=== PATIENT | female | born 1950 | race Caucasian/White ===

== ENCOUNTER 2016-06-27 14:57 | Emergency (ER) | payer OTHER ==
[2016-06-27 15:04] VITALS: O2SAT 95
--- NOTE | 2016-06-27 16:33 | EDPHY ---
H & P Time Seen by Provider: 06/27/16 16:29 HPI/ROS: CHIEF COMPLAINT: Panic attacks. HISTORY OF PRESENT ILLNESS: This is a 66-year-old female who presents with severe anxiety. She was placed on Xanax one month ago for new-onset anxiety. She reports that the Xanax caused her to start having more frequent panic attacks. She is having difficulty sleeping and says she is "spiraling out of control." She says her panic attacks manifest as chest pain, shortness of breath , and shaking. She believes all of this was caused by the fact that her new house has tinted windows. She also reports being placed on Celexa a week ago and took a few doses before stopping it due to "burning" in the back of her head. She does state she has been thinking more often about suicide. She denies HI, hallucinations, or other complaints at this time. She has not seen a psychiatrist. Her states that her anxiety is out of control, and she is unable to function because of severe anxiety. REVIEW OF SYSTEMS: A complete 10-point review of systems was performed and is negative except for those items mentioned in the HPI. Past Medical/Surgical History: Hypothyroidism, anxiety, depression. Social History: Here with . Smoking Status: Never smoked Physical Exam: General Appearance: very anxious Eyes: Pupils equal and round, no conjunctival pallor or injection ENT, Mouth: Mucous membranes moist Neck: Normal inspection Respiratory: Lungs are clear to auscultation Cardiovascular: Regular rate and rhythm Gastrointestinal: Abdomen is soft and non-tender Neurological: A&O, nonfocal, normal gait Skin: Warm and dry, no rash Extremities: normal inspection Psychiatric: anxious Constitutional: Initial Vital Signs Temperature (C) 36.2 C 06/27/16 15:00 Heart Rate 82 06/27/16 15:00 Respiratory Rate 20 06/27/16 15:00 Blood Pressure 138/100 H 06/27/16 15:00 O2 Sat (%) 95 06/27/16 15:00 O2 Delivery Mode Room Air Allergies/Adverse Reactions: acetaminophen [From Tylenol] Allergy (Verified 06/27/16 15:04) aspirin Allergy (Verified 06/27/16 15:04) Home Medications: Medication Instructions Recorded LORazepam [Ativan (RX)] 1 mg PO Q12 PRN #10 tab 06/27/16 Medical Decision Making ED Course/Re-evaluation: I offered Ativan to the patient but she initally declined. Mental health evaluators have been notified and will evaluate her when available. 2043: Con from [facility] has consulted with the patient. [place] appropriate for outpt treatment of anxiety and depression. She has an appointment scheduled for Tuesday with her regular doctor and will seek out a psychiatrist. 2121: Reassessed patient. She received 1mg PO Ativan which helped her anxiety greatly. She was feeling better and ready to go home. I answered all of her questions. She understands to follow up with her primary care provider on Tuesday. She is comfortable with the plan. - Data Points Laboratory Results: Laboratory Results 06/27/16 17:35 06/27/16 17:35 Medications Given: Discontinued Medications Lorazepam (Ativan) 1 mg PO EDNOW ONE Stop: 06/27/16 17:07 Last Admin: 06/27/16 17:21 Dose: 1 mg Lorazepam (Ativan 1 Mg Prepack#4) 1 btl TAKEHOME EDNOW ONE Stop: 06/27/16 20:50 Last Admin: 06/27/16 21:43 Dose: 1 btl Departure - Departure Disposition: Home, Routine, Self-Care Clinical Impression: Anxiety Condition: Good Instructions: Anxiety (ED), Lorazepam (By mouth) Additional Instructions: Follow up with your doctor on Tuesday as scheduled and discussed. Take 1 tablet Ativan every 12 hours as needed for anxiety. Return to the emergency department for thoughts of suicide, thoughts of harming yourself or others, or other worsening of condition. Referrals: Danisha Escobar MD [Primary Care Provider] - As per Instructions Prescriptions: LORazepam [Ativan (RX)] 1 mg PO Q12 PRN #10 tab PRN Reason: Anxiety Report Scribed for: Ania Valentine Report Scribed by: Regis Rodrigues Date of Report: 06/27/16 Time of Report: 16:30 Physician Review and Approval Statement: 06/27/16 16:30 Portions of this note were transcribed by a medical delivery driver. I personally performed a history, physical exam, medical decision making, and confirmed accuracy of information the transcribed note.
[2016-06-27] MEDS ORDERED: LORazepam 1 MG TAB PO ONE (17:06)
[2016-06-27 17:42] LABS: % IMMATURE GRANULYOCYTES 0.1 % (0.0-1.1); ABSOLUTE IMMATURE GRANULOCYTES 0.01 10^3/uL (0.00-0.10); ADD DIFF? NO; ADD MORPH? NO; ADD SCAN? NO; ATYPICAL LYMPHOCYTE FLAG 0 (0-99); FRAGMENT RBC FLAG 0 (0-99); HEMOGLOBIN 14.8 g/dL (12.6-16.3); LEFT SHIFT FLG 0 (0-99); LIPEMIA HEMOLYSIS FLAG 80 (0-99); MEAN CELL HEMOGLOBIN 28.8 pg (27.9-34.1); MEAN CELL HEMOGLOBIN CONCENTR. 33.6 g/dL (32.4-36.7); MEAN CELL VOLUME 85.6 fL (81.5-99.8); MEAN PLATELET VOLUME 9.9 fL (8.7-11.7); PLATELET CLUMPS FLAG 10 (0-99); PLATELET COUNT 356 10^3/uL (150-400); RED BLOOD CELL COUNT 5.14 10^6/uL (4.18-5.33); RED CELL DISTRIBUTION WIDTH 13.4 % (11.5-15.2)
[2016-06-27 17:58] LABS: ANION GAP 12 mEq/L (8-16); CALCIUM 9.2 mg/dL (8.5-10.4); CARBON DIOXIDE 22 mEq/l (22-31); CHLORIDE 105 mEq/L (97-110); CREATININE 0.9 mg/dL (0.6-1.0); ETHANOL SERUM < 10 mg/dL (0-10); GLOMERULAR FILTRATION RATE > 60; GLUCOSE 89 mg/dL (70-100); POTASSIUM 4.1 mEq/L (3.5-5.2); SODIUM 139 mEq/L (134-144)
[2016-06-27] MEDS ORDERED: LORAZEPAM 1 MG PREPACK#4 BTL TAKEHOME ONE (20:49)
[2016-06-27 21:45] VITALS: BP 133/77; PULSE 79; RESP 18; TEMP 97.5
== END 2016-06-27 21:45 | disposition home or self-care (01) ==
DX: F41.9 Anxiety disorder, unspecified (principal)
CPT/HCPCS: 80305; G0480

== ENCOUNTER → 2018-03-16 | Outpatient (CLI) | payer OTHER | LOC: BMCIMAGING 09:35 | PROVIDERS: ATTEND Orthopaedic Surgery | DX: M17.0 Bilateral primary osteoarthritis of knee (principal); M21.061 Valgus deformity, not elsewhere classified, right knee ==

== ENCOUNTER → 2018-03-24 | Outpatient (CLI) | payer OTHER | LOC: FIMAGING 13:23 | PROVIDERS: ATTEND Orthopaedic Surgery | DX: Z01.818 Encounter for other preprocedural examination (principal); M17.0 Bilateral primary osteoarthritis of knee ==

== ENCOUNTER 2018-04-17 08:43 | Inpatient (IN) | payer OTHER ==
--- NOTE | 2018-04-17 06:44 | PDIAF ---
- Diagnosis Diagnosis: right knee djd Code Status: Full Code - Medication Management Discharge Medications: electronically signed and located in the Home Medication List. - Orders Services needed: Home Care, Physical Therapy Home Care Face to Face: I certify that this patient was under my care and that I had the required qgsz-tc-[id number] encounter meeting the encounter requirements on the discharge day. My findings support the fact that the patient is homebound as defined in Home Care Face to Face Continued: CMS Chapter 7 Medicare Benefits Manual 30.1.1 , The condition of the patient is such that there exists a normal inability to leave home and consequently, leaving home would require a considerable and taxing effort. Diet Recommendation: no restrictions on diet Diet Texture: Regular Texture Diet Additional Instructions: TOTAL JOINT ARTHROPLASTY DISCHARGE INSTRUCTIONS 1. Your surgeon follows the [facility] protocol for reducing your risk of DVT (blood clots) following surgery. Medication will be ordered to prevent blood clots. A sudden increase in calf pain and/or swelling could indicate a blood clot in your leg. If this occurs, please call your surgeon or his/her law office assistant. An ultrasound of the leg may be necessary to diagnose a blood clot. If you have conditions that make you a higher risk for blood clots, your surgeon may use more aggressive ways to prevent them. Notify your surgeon if you think you are a high risk for blood clots. 2. Wear your white surgical stockings (MT hose) for 2 weeks. This decreases your swelling and may help prevent blood clots. It is ok to remove MT hose at night time to give your legs a break. 3. Swelling and bruising in the surgical leg is common. If you feel that it is excessive, please notify your surgeon. 4. Elevate your surgical leg with the ankle above the hip several times every day. Please keep the leg straight when you elevate by putting pillows under your foot. Do not put pillows under your knee. This will make being able to fully straighten more difficult. This is uncomfortable, but try to do it as much as possible. 5. For total knee replacements use compressive wrap on your knee for 3-5 days after surgery, then you can discontinue it. 6. Use a walker or crutches for 1-2 weeks. Progress your weight-bearing as tolerated. You may start to use a cane when you feel stable and safe. 7. You will receive physical therapy instructions in the hospital. Continue those exercises at home. There are additional exercises in the total joint booklet you were given before surgery. Outpatient physical therapy will begin 7- 10 days after surgery. Please schedule this in advance. 8. Use ice on your knee at least 3-5 times every day for 30 minutes. This helps reduce pain and swelling. Also use it at night before falling asleep. 9. Leave your surgical dressing in place for 2 weeks. Your dressing is water resistant, but not waterproof. Cover it with Saran Wrap or [id number]-[id number] before showering. You may shower as soon as you feel safe entering a shower. If you notice bleeding from your incision 2 or 3 days after surgery, please notify your surgeon. 10. Due to narcotics, decreased activity and altered diet, most patients experience constipation after surgery. Use hqwb-rwk-rwrvitv stool softeners while you are on narcotics. 11. You may drive a car when you are comfortable bearing weight, have good muscular control of your leg and are off narcotics. This usually occurs 2-4 weeks after surgery, depending on which leg was operated on. 12. If there are questions not addressed here, please refer the [facility] book given for more information. If you still have questions, please contact your surgeon s office. 13. If you have a life-threatening emergency, please call 911 and go to the emergency room immediately. For non-life threatening emergencies, please call your physicians office for advice before going to the emergency room. - Follow Up Care Current Providers and Referrals: Kim Llanes MD [Primary Care Provider] - Milo Grijalva MD [Medical Doctor] -
--- NOTE | 2018-04-17 06:44 | PDHPUP ---
History & Physical Update H&P update statement: This history and physical update is based on an assessment of the patient which was completed after admission or registration (within 24 hours), but prior to the surgery/procedure. H&P update: no change in patient's condition since H&P completed
[~2018-04-17 08:43] MED LIST: CALCIUM CHLORIDE 1 GM/10 ML INJ ONE; ROPIVACAINE 0.2% 80 MG, EPINEPHrine 0.2 MG, morphINE 10 MG in SYRINGE 0 ML IU ONE; THROMBIN (BOVINE) 5,000 UNIT VIAL TP ONE; TRANEXAMIC ACID 1,000 MG in NS 100 ML IV ONE; ceFAZolin 1 GM/5 ML SYR ONE
[2018-04-17] MEDS ORDERED: LR 1,000 ML IV ONE (08:59)
[2018-04-17] MEDS ORDERED: LIDOCAINE 1% 2 ML INJ ID PRN (08:59)
[2018-04-17] MEDS ORDERED: FAMOTIDINE 20 MG TAB PO ONE (08:59)
[2018-04-17] MEDS ORDERED: ceFAZolin 2 GM/DEXTROSE 100 ML IV ONE (08:59)
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
[2018-04-17] MEDS ORDERED: MIDAZOLAM 2 MG/2 ML VIAL ONE (10:27)
[2018-04-17] MEDS ORDERED: PROPOFOL/EMULSION 500 MG/50 ML BOTTLE IV ONE (10:28)
[2018-04-17] MEDS ORDERED: ONDANSETRON 4 MG/2 ML VIAL ONE (10:30)
[2018-04-17] MEDS ORDERED: ROPIVACAINE HCL 150 MG/30 ML INJ ONE (10:30)
[2018-04-17] MEDS ORDERED: fentaNYL 100 MCG/2 ML INJ ONE ×3 (11:11→14:05)
[2018-04-17] MEDS ORDERED: PHENYLEPHRINE HCL 100 MCG/ML SYR ONE (11:18)
[2018-04-17] MEDS ORDERED: METOCLOPRAMIDE 10 MG/2 ML VIAL IVP PRN (12:23)
[2018-04-17] MEDS ORDERED: PROMETHAZINE HCL 25 MG/ML INJ IVP PRN (12:23)
[2018-04-17] MEDS ORDERED: DIPHENOXYLATE/ATROPINE LOMOTIL 1 TAB PO PRN (12:23)
[2018-04-17] MEDS ORDERED: PROMETHAZINE HCL 25 MG SUPPR PR PRN (12:23)
[2018-04-17] MEDS ORDERED: MAGNESIUM HYDROXIDE 30 ML UDCUP PO PRN (12:23)
[2018-04-17] MEDS ORDERED: TEMAZEPAM 15 MG CAP PO PRN (12:23)
[2018-04-17] MEDS ORDERED: BISACODYL 10 MG SUPP PR PRN (12:23)
[2018-04-17] MEDS ORDERED: diphenhydrAMINE 25 MG CAP PO PRN (12:23)
[2018-04-17] MEDS ORDERED: POLYETHYLENE GLYCOL 3350 17 GM PKT PO PRN (12:23)
[2018-04-17] MEDS ORDERED: ONDANSETRON 4 MG/2 ML VIAL IVP PRN ×2 (12:23→12:49)
[2018-04-17] MEDS ORDERED: ONDANSETRON DISINTEGRATING 4 MG TAB PO PRN (12:23)
[2018-04-17] MEDS ORDERED: LACTULOSE 20 GM/30 ML UDCUP PO PRN (12:23)
--- NOTE | 2018-04-17 12:23 | POSTOPPROG ---
Post Op Note Date of Operation: 04/17/18 Surgeon: Milo Grijalva Cardiology Physician Assistant: los Anesthesiologist: razia Anesthesia: Spinal Pre-op Diagnosis: right knee djd Post-op Diagnosis: same Indication: same Procedure: right tka Inf/Abcess present in the surg proc area at time of surgery?: No Depth: Deep Incisional (Fascial) EBL: 100-500
[2018-04-17] MEDS ORDERED: LR 1,000 ML IV SCH (12:30)
[2018-04-17] MEDS ORDERED: LR 500 ML IV PRN (12:49)
[2018-04-17] MEDS ORDERED: NALOXONE HCL 0.4 MG/ML INJ IVP PRN (12:49)
[2018-04-17] MEDS ORDERED: DEXAMETHASONE 4 MG/ML VIAL IVP PRN (12:49)
--- NOTE | 2018-04-17 12:51 | POSTANESTH ---
Post Anesthetic Evaluation Cardiovascular Status: Normal, Stable Respiratory Status: Normal, Stable Level of Consciousness/Mental Status: Can Participate in Eval Pain Control: Adequate, Prn Tx Ordered Nausea/Vomiting Control: Adequate, Prn Tx Ordered Complications Possibly Related to Anesthesia: None Noted
[2018-04-17] MEDS ORDERED: PROMETHAZINE HCL 25 MG/ML INJ ONE (13:30)
[2018-04-17] MEDS: fentaNYL 100 MCG/2 ML INJ IVP PRN ×4 (13:31→15:17)
[2018-04-17] MEDS ORDERED: KETOROLAC 30 MG/1 ML SDV ONE (14:17)
[2018-04-17] MEDS: CYCLOBENZAPRINE 10 MG TAB PO PRN (14:22)
[2018-04-17] MEDS ORDERED: oxyCODONE IR 5 MG TAB ONE (14:44)
[2018-04-17] MEDS: oxyCODONE IR 5 MG TAB PO PRN ×4 (14:53→23:53)
[2018-04-17] MEDS ORDERED: KETOROLAC 30 MG/1 ML SDV IVP ONE (15:00)
[2018-04-17] MEDS: TRANEXAMIC ACID 650 MG TAB PO SCH ×2 (16:07→22:17)
--- NOTE | 2018-04-17 16:40 | ASMTCMCOM ---
CM Note CM Note Notes: Pt is s/p R TKA. She would like home care PT. She lives approx 7 miles outside of [place] towards [place] with her . [facility] CM will follow for d/c needs. D/C Plan: Home care PT Date Signed: 04/17/2018 04:39 PM Electronically Signed By:MEENAKSHI Gamble
--- NOTE | 2018-04-17 16:45 | ASMTCMCOM ---
CM Note CM Note Notes: Please disregard previous CM note - it was done on the wrong pt. This pt is s/p R TKA. PT/OT evals pending. She lives in [place] with her . CM will follow for any d/c needs. Date Signed: 04/17/2018 04:44 PM Electronically Signed By:MEENAKSHI Gamble
[2018-04-17] MEDS: ACETAMINOPHEN 325 MG TAB PO SCH (18:09)
[2018-04-17] MEDS: ceFAZolin 2 GM/DEXTROSE 100 ML IV SCH (18:10)
[2018-04-17] MEDS: SENNOSIDES/DOCUSATE SODIUM TAB PO SCH (20:25)
[2018-04-17] MEDS: FAMOTIDINE 20 MG TAB PO SCH (20:26)
[2018-04-17] MEDS: ASPIRIN 325 MG TAB PO SCH (22:17)
[2018-04-18] MEDS: ceFAZolin 2 GM/DEXTROSE 100 ML IV SCH (01:40)
[2018-04-18] MEDS: CYCLOBENZAPRINE 10 MG TAB PO PRN ×2 (01:49→18:27)
[2018-04-18] MEDS: TRANEXAMIC ACID 650 MG TAB PO SCH (05:42)
[2018-04-18] MEDS: oxyCODONE IR 5 MG TAB PO PRN ×5 (05:42→21:43)
[2018-04-18] MEDS: ACETAMINOPHEN 325 MG TAB PO SCH ×4 (05:52→18:27)
--- NOTE | 2018-04-18 07:20 | SOAPPROG ---
SOAP Progress Note Assessment/Plan: Assessment: s/p right tka Plan:d/c home when cleared by pt reviewed asa for dvt prophylaxis, either lovenox shots or asa, patient chose asa pain control d/c home 04/18/18 07:18 Subjective: nervous no cp or sob mod pain to right lower ext Objective: Vital Signs Temp Pulse Resp BP Pulse Ox 36.6 C 76 16 147/90 H 98 04/18/18 04:11 04/18/18 04:11 04/18/18 04:11 04/18/18 04:11 04/18/18 04:11 Laboratory Results 04/18/18 05:30 04/17/18 04/18/18 04/19/18 05:59 05:59 05:59 Intake Total 3610 Output Total 2300 Balance 1310 dressing intact intact pdf,ehl, toes warm and pink neg homans amada xrays stable alignment, no fx or lucency ICD10 Worksheet Patient Problems: Problems Problem Status Onset Arthritis of knee Acute - ICD10 Problem Qualifiers (1) Arthritis of knee
--- NOTE | 2018-04-18 07:20 | PDIAF ---
- Diagnosis Diagnosis: right knee djd Code Status: Full Code - Medication Management Discharge Medications: electronically signed and located in the Home Medication List. - Orders Services needed: Home Care, Physical Therapy Home Care Face to Face: I certify that this patient was under my care and that I had the required nshb-zj-hypf encounter meeting the encounter requirements on the discharge day. My findings support the fact that the patient is homebound as defined in Home Care Face to Face Continued: CMS Chapter 7 Medicare Benefits Manual 30.1.1 , The condition of the patient is such that there exists a normal inability to leave home and consequently, leaving home would require a considerable and taxing effort. Diet Recommendation: no restrictions on diet Diet Texture: Regular Texture Diet Additional Instructions: TOTAL JOINT ARTHROPLASTY DISCHARGE INSTRUCTIONS 1. Your surgeon follows the [facility] protocol for reducing your risk of DVT (blood clots) following surgery. Medication will be ordered to prevent blood clots. A sudden increase in calf pain and/or swelling could indicate a blood clot in your leg. If this occurs, please call your surgeon or his/her registered nurse first assistant. An ultrasound of the leg may be necessary to diagnose a blood clot. If you have conditions that make you a higher risk for blood clots, your surgeon may use more aggressive ways to prevent them. Notify your surgeon if you think you are a high risk for blood clots. 2. Wear your white surgical stockings (MT hose) for 2 weeks. This decreases your swelling and may help prevent blood clots. It is ok to remove MT hose at night time to give your legs a break. 3. Swelling and bruising in the surgical leg is common. If you feel that it is excessive, please notify your surgeon. 4. Elevate your surgical leg with the ankle above the hip several times every day. Please keep the leg straight when you elevate by putting pillows under your foot. Do not put pillows under your knee. This will make being able to fully straighten more difficult. This is uncomfortable, but try to do it as much as possible. 5. For total knee replacements use compressive wrap on your knee for 3-5 days after surgery, then you can discontinue it. 6. Use a walker or crutches for 1-2 weeks. Progress your weight-bearing as tolerated. You may start to use a cane when you feel stable and safe. 7. You will receive physical therapy instructions in the hospital. Continue those exercises at home. There are additional exercises in the total joint booklet you were given before surgery. Outpatient physical therapy will begin 7- 10 days after surgery. Please schedule this in advance. 8. Use ice on your knee at least 3-5 times every day for 30 minutes. This helps reduce pain and swelling. Also use it at night before falling asleep. 9. Leave your surgical dressing in place for 2 weeks. Your dressing is water resistant, but not waterproof. Cover it with Saran Wrap or Spnbw-j-Tetr before showering. You may shower as soon as you feel safe entering a shower. If you notice bleeding from your incision 2 or 3 days after surgery, please notify your surgeon. 10. Due to narcotics, decreased activity and altered diet, most patients experience constipation after surgery. Use acrc-rck-jnpjdlt stool softeners while you are on narcotics. 11. You may drive a car when you are comfortable bearing weight, have good muscular control of your leg and are off narcotics. This usually occurs 2-4 weeks after surgery, depending on which leg was operated on. 12. If there are questions not addressed here, please refer the [facility] book given for more information. If you still have questions, please contact your surgeon s office. 13. If you have a life-threatening emergency, please call 911 and go to the emergency room immediately. For non-life threatening emergencies, please call your physicians office for advice before going to the emergency room. - Follow Up Care Current Providers and Referrals: Kim Llanes MD [Primary Care Provider] - Milo Grijalva MD [Medical Doctor] -
[2018-04-18] MEDS: SENNOSIDES/DOCUSATE SODIUM TAB PO SCH ×2 (08:47→21:41)
[2018-04-18] MEDS: ASPIRIN 325 MG TAB PO SCH (08:47)
[2018-04-18] MEDS: FAMOTIDINE 20 MG TAB PO SCH ×2 (08:47→21:43)
--- NOTE | 2018-04-18 10:57 | ASMTCMCOM ---
CM Note CM Note Notes: Spoke with patient about the recommendation for home health care and she would like to participate. Patient lives in [place] so [facility] will visit with her today regarding their services. Chanel states she will get here close to 12:00 noon. Patient's is here today and can participate in the meeting with [facility]. Patient is chente for discharge today. CM will follow. Date Signed: 04/18/2018 10:56 AM Electronically Signed By:Danielle Broderick LCSW
--- NOTE | 2018-04-18 12:46 | ASMTCMCOM ---
CM Note CM Note Notes: Spoke with physical therapy and they state patient is in high degrees of pain and unable to complete even 1 step. They are recommending patient stay here in the hospital until pain is managed and patient can complete basic standards for discharge. Spoke with the patient and she is still interested in meeting with [facility]. Patient states she prefers home care over SNF rehab. [facility] will do daily PT if that is what the patient needs and so it might be appropriate in this case to continue with home health PT for patient's discharge plan. Patient had questions about Medicare coverage for extra days in the hosptial. After talking with financial services, if the physician will change patient from OBS status to inpatient, the days will be covered. Informed the patient and offered to have someone from financial services visit her if she has further questions. CM will follow. Date Signed: 04/18/2018 12:44 PM Electronically Signed By:Danielle Broderick LCSW
[2018-04-19] MEDS: ACETAMINOPHEN 325 MG TAB PO SCH ×3 (00:26→11:20)
[2018-04-19] MEDS: oxyCODONE IR 5 MG TAB PO PRN ×2 (04:58→09:38)
--- NOTE | 2018-04-19 06:27 | PDIAF ---
- Diagnosis Diagnosis: right knee djd Code Status: Full Code - Medication Management Discharge Medications: electronically signed and located in the Home Medication List. - Orders Services needed: Home Care, Physical Therapy Home Care Face to Face: I certify that this patient was under my care and that I had the required [id number]-aw-[id number] encounter meeting the encounter requirements on the discharge day. My findings support the fact that the patient is homebound as defined in Home Care Face to Face Continued: CMS Chapter 7 Medicare Benefits Manual 30.1.1 , The condition of the patient is such that there exists a normal inability to leave home and consequently, leaving home would require a considerable and taxing effort. Diet Recommendation: no restrictions on diet Diet Texture: Regular Texture Diet Additional Instructions: TOTAL JOINT ARTHROPLASTY DISCHARGE INSTRUCTIONS 1. Your surgeon follows the [facility] protocol for reducing your risk of DVT (blood clots) following surgery. Medication will be ordered to prevent blood clots. A sudden increase in calf pain and/or swelling could indicate a blood clot in your leg. If this occurs, please call your surgeon or his/her virtual assistant. An ultrasound of the leg may be necessary to diagnose a blood clot. If you have conditions that make you a higher risk for blood clots, your surgeon may use more aggressive ways to prevent them. Notify your surgeon if you think you are a high risk for blood clots. 2. Wear your white surgical stockings (MT hose) for 2 weeks. This decreases your swelling and may help prevent blood clots. It is ok to remove MT hose at night time to give your legs a break. 3. Swelling and bruising in the surgical leg is common. If you feel that it is excessive, please notify your surgeon. 4. Elevate your surgical leg with the ankle above the hip several times every day. Please keep the leg straight when you elevate by putting pillows under your foot. Do not put pillows under your knee. This will make being able to fully straighten more difficult. This is uncomfortable, but try to do it as much as possible. 5. For total knee replacements use compressive wrap on your knee for 3-5 days after surgery, then you can discontinue it. 6. Use a walker or crutches for 1-2 weeks. Progress your weight-bearing as tolerated. You may start to use a cane when you feel stable and safe. 7. You will receive physical therapy instructions in the hospital. Continue those exercises at home. There are additional exercises in the total joint booklet you were given before surgery. Outpatient physical therapy will begin 7- 10 days after surgery. Please schedule this in advance. 8. Use ice on your knee at least 3-5 times every day for 30 minutes. This helps reduce pain and swelling. Also use it at night before falling asleep. 9. Leave your surgical dressing in place for 2 weeks. Your dressing is water resistant, but not waterproof. Cover it with Saran Wrap or Ljgho-q-Qqmn before showering. You may shower as soon as you feel safe entering a shower. If you notice bleeding from your incision 2 or 3 days after surgery, please notify your surgeon. 10. Due to narcotics, decreased activity and altered diet, most patients experience constipation after surgery. Use nkmu-trl-twcaxue stool softeners while you are on narcotics. 11. You may drive a car when you are comfortable bearing weight, have good muscular control of your leg and are off narcotics. This usually occurs 2-4 weeks after surgery, depending on which leg was operated on. 12. If there are questions not addressed here, please refer the [facility] book given for more information. If you still have questions, please contact your surgeon s office. 13. If you have a life-threatening emergency, please call 911 and go to the emergency room immediately. For non-life threatening emergencies, please call your physicians office for advice before going to the emergency room. - Follow Up Care Current Providers and Referrals: Kim Llanes MD [Primary Care Provider] - Milo Grijalva MD [Medical Doctor] -
--- NOTE | 2018-04-19 06:27 | SOAPPROG ---
SOAP Progress Note Assessment/Plan: Assessment: s/p right tka Plan: patient required 24 hours of additional inpatient status for iv pain medicine, pain control and additional therapy d/c home when cleared by pt reviewed asa for dvt prophylaxis, either lovenox shots or asa, patient chose asa pain control d/c home 04/18/18 07:18 04/19/18 06:26 Subjective: mod pain no cp or sob Objective: Vital Signs Temp Pulse Resp BP Pulse Ox 36.9 C 86 16 149/82 H 94 04/19/18 04:00 04/19/18 04:00 04/19/18 04:00 04/19/18 04:00 04/19/18 04:00 Laboratory Results 04/19/18 04:05 04/18/18 04/19/18 04/20/18 05:59 05:59 05:59 Intake Total 3610 1050 Output Total 2300 2500 Balance 1310 -1450 dressing intact intact pf,df,ehl toes warm and pink neg homans amada xrays stable anatomic alignment ICD10 Worksheet Patient Problems: Problems Problem Status Onset Arthritis of knee Acute - ICD10 Problem Qualifiers (1) Arthritis of knee
[2018-04-19 07:59] VITALS: BP 159/79
--- NOTE | 2018-04-19 09:11 | PDMN ---
Medical Necessity Medical necessity: Changed to IP status as of 04/18 for IV pain medicine, pain control and additional therapy following RTKA (CPT 17707)
[2018-04-19] MEDS: SENNOSIDES/DOCUSATE SODIUM TAB PO SCH (09:32)
[2018-04-19] MEDS: ASPIRIN 325 MG TAB PO SCH (09:32)
[2018-04-19] MEDS: FAMOTIDINE 20 MG TAB PO SCH (09:32)
--- NOTE | 2018-04-19 13:20 | ASMTLACE ---
MARIANOE Length of stay for Answers: 2 days current admission Acuity / Level of Answers: Yes Care: Did the patient have an inpatient admission? Comorbidities - select Answers: Opioid dependence all that apply / Chronic pain Other Notes: Hypothyroid # of Emergency department Answers: 0 visits in the last 6 months Social determinants Answers: Mental health diagnosis (anxiety, depression, pers onality disorders, etc.) Score: 13 Date Signed: 04/19/2018 01:20 PM Electronically Signed By:MEENAKSHI Duffy
--- NOTE | 2018-04-19 13:21 | ASMTCMCOM ---
CM Note CM Note Notes: Pt medically stable for d/c with [facility]. PT rec [facility]/outpatient today. Orders sent to TS in [employer]. Chanel with TS intake notified. Date Signed: 04/19/2018 01:21 PM Electronically Signed By:MEENAKSHI Duffy
--- NOTE | 2018-04-19 13:54 | ASDISCHSUM ---
Discharge Information Plan Status:Home with Home Health Medically Cleared to Leave: Discharge Date:04/19/2018 01:41 PM CM D/C Disposition: ADT D/C Disposition:Home Health Service Projected Discharge Date:04/19/2018 11:00 AM Transportation at D/C: Discharge Delay Reason: Follow-Up Date:04/19/2018 11:00 AM Discharge Slot: Final Diagnosis: Placement Information Referral Type:*Home Health Care Services Referral ID:[id number] Provider Name:[facility] [place] Address 1:[address] [place] [address] Address 2: City:[place] Selection Factors: State:[place] Patient Contact Information Contact Name:CAMERON Relationship: Address:[address] Work Phone: City:[facility] Phone: State/Zip Code:[place] [address] Email: Financial Information Financial Class:Medicare Primary Plan Desc:MEDICARE INPATIENT Primary Plan Number:[id number] Secondary Plan Desc:ANGELICA Secondary Plan Number:[id number] Assessment Information LACE LACE Length of stay for Answers: 2 days current admission Acuity / Level of Answers: Yes Care: Did the patient have an inpatient admission? Comorbidities - select Answers: Opioid dependence all that apply / Chronic pain Other Notes: Hypothyroid # of Emergency department Answers: 0 visits in the last 6 months Social determinants Answers: Mental health diagnosis (anxiety, depression, pers onality disorders, etc.) Score: 13 Date Signed: 04/19/2018 01:20 PM Electronically Signed By:MEENAKSHI Duffy [facility] CM Progress Note CM Note CM Note Notes: Pt is s/p R TKA. She would like home care PT. She lives approx 7 miles outside of [place] with her . Referrals sent via [facility]. CM will follow for d/c needs. D/C Plan: Home care PT Date Signed: 04/17/2018 04:39 PM Electronically Signed By:MEENAKSHI Gamble [facility] CM Progress Note CM Note CM Note Notes: Please disregard previous CM note - it was done on the wrong pt. This pt is s/p R TKA. PT/OT evals pending. She lives in [place] with her . CM will follow for any d/c needs. Date Signed: 04/17/2018 04:44 PM Electronically Signed By:MEENAKSHI Gamble [facility] CM Progress Note CM Note CM Note Notes: Spoke with patient about the recommendation for home health care and she would like to participate. Patient lives in [place] so [facility] will visit with her today regarding their services. Chanel states she will get here close to 12:00 noon. Patient's is here today and can participate in the meeting with [facility]. Patient is chente for discharge today. CM will follow. Date Signed: 04/18/2018 10:56 AM Electronically Signed By:Danielle Broderick LCSW [facility] CM Progress Note CM Note CM Note Notes: Spoke with physical therapy and they state patient is in high degrees of pain and unable to complete even 1 step. They are recommending patient stay here in the hospital until pain is managed and patient can complete basic standards for discharge. Spoke with the patient and she is still interested in meeting with Sheree Aguilera. Patient states she prefers home care over SNF rehab. Sheree Aguilera will do daily PT if that is what the patient needs and so it might be appropriate in this case to continue with home health PT for patient's discharge plan. Patient had questions about Medicare coverage for extra days in the hosptial. After talking with [facility], if the physician will change patient from OBS status to inpatient, the days will be covered. Informed the patient and offered to have someone from [facility] visit her if she has further questions. CM will follow. Date Signed: 04/18/2018 12:44 PM Electronically Signed By:Danielle Broderick LCSW [facility] CM Progress Note CM Note CM Note Notes: Pt medically stable for d/c with Sheree Aguilera [facility]. PT rec [facility]/outpatient today. [facility] [place] with TS intake notified. Date Signed: 04/19/2018 01:21 PM Electronically Signed By:MEENAKSHI Duffy Intervention Information Intervention Type:*Incorrect Registration Date of Service:04/17/2018 02:56 PM Patient Type:Inpatient Staff Member:Faviola Lynne Hours: Discipline: Severity: Comment:
--- NOTE | 2018-04-23 08:55 | GOP ---
DATE OF OPERATION: 04/17/2018 SURGEON: Milo Grijalva MD EDGE TRIMMER MECHANIC: Tre White, surgical supervisor who was a medical necessity for the entirety of the case. PREOPERATIVE DIAGNOSIS: Right knee degenerative joint disease. POSTOPERATIVE DIAGNOSIS: Right knee degenerative joint disease. PROCEDURE PERFORMED: Right total knee arthroplasty-MAKOplasty. FINDINGS: SPECIMENS: To Pathology, the bony cuts. INDICATIONS: The patient is a 67-year-old woman with end-stage arthritis to her right knee. Clinica l, radiographic features are consistent with this. She has failed all attempts at conservative manag ement. I have, therefore, recommended total knee replacement. I have outlined the surgical procedur e, risks, benefits, and alternatives. She wished to proceed. Written consent was signed and placed in patient's chart. DESCRIPTION OF PROCEDURE: Patient was identified in the preanesthesia area. The right knee clearly demarcated as the operative site with indelible marker. She was given 2 g of Ancef intravenously in route to the operative suite. In the OR, a spinal anesthetic was placed. She was positioned in the supine position. All bony prominences were well padded. Attention was turned to the right knee, which was sterilely prepped and draped in the usual fashion. Tourniquet had been applied to the upper thigh. Appropriate time-out procedure was carried out. Th e limb was exsanguinated Esmarch bandage. Tourniquet inflated to 275 mmHg. An anterior approach to the knee was carried out. Thick subcutaneous flaps were elevated, followed b y medial parapatellar arthrotomy. Subperiosteal elevation was carried out to the mid coronal plane. Retractors then placed. The knee demonstrated tricompartmental arthritis, decision was made to proc eed with total knee replacement. 2 pins were then placed from medial to lateral across the femur. The femoral reference array and joy ck point were then placed. A separate percutaneous incision was made over the mid goldstein and 2 pins we re then placed and the tibial array was placed. The tibial checkpoint was then placed as well. The bony landmarks were entered into the computer in standard fashion. The marginal osteophytes were wit hdrawn and the knee was balanced the flexion-extension arc with the MAKOplasty software and soft tiss ue releases. Using the MAKOplasty robot, resections were made for a size 3 femur, size 3 tibia, and ultimately, a 3 x 11 mm poly trial was placed. This allowed full extension, flexion to 130 degrees with no instabi lity through the flexion-extension arc. The trial components were withdrawn. In sequential fashion, the tibial femoral components were press-fit into position. The 3 x 11 mm polyethylene spacer was p laced, confirmed to be fully seated. The knee was brought into extension. Patella was everted, cut in a freehand cutting technique, and drill holes made for a size 32 mm patella. This was press-fit i nto position as well. The knee cap tracked centrally through flexion-extension arc. The wound was copiously irrigated. The joint instilled with a joint cocktail of ropivacaine, morphin e, Toradol, and epinephrine. The medial parapatellar arthrotomy closed using #1 Ethibond and the kne e instilled with platelet-rich plasma. Subcutaneous tissue closed using 2-0 Monocryl. Skin with a Z ipLine closure. Sterile dressing was applied. The patient was awakened, extubated, and taken to the recovery room in good, stable condition. TOTAL TOURNIQUET TIME: 45 minutes. COMPLICATIONS: None. IMPLANTS: Vlad Triathlon posterior stabilized femoral component size 3, size 3 tibial component, 3 x 11 mm X3 liner, and 32 mm patella. DISPOSITION: To recovery room, then the floor. She is weightbearing, range of motion as tolerated. /[id number]/MODL
--- NOTE | 2018-04-23 13:01 | GDS ---
ADMISSION DIAGNOSIS: Right knee degenerative joint disease. DISCHARGE DIAGNOSIS: Right knee degenerative joint disease. PROCEDURE: Right total knee arthroplasty. HISTORY OF PRESENT ILLNESS: The patient is a 68-year-old woman with end-stage arthritis to the right knee. Her clinical and radiographic features are consistent with this. She understands the options o f the procedure, risks, benefits, and alternatives, and wished to proceed. HOSPITAL COURSE: The patient was admitted to the hospital after an uncomplicated total knee arthropl asty. Postop course was delayed, secondary to issues of pain control, nausea, and intolerance of pain medication. At the time of discharge, she is tolerating an oral diet, pain was well controlled on or al medicines. She is voiding without difficulty. Dressing is clean, dry, and intact. She has been marshall ared by Physical Therapy. DISCHARGE ACTIVITY: She is weightbearing as tolerated. Range of motion as tolerated. Keep the dressi ng intact unless saturation occurs, then daily dressing changes with a pressure dressing. FOLLOWUP: For increasing redness, swelling, drainage, discharge, leg pain, shortness of breath, or o ther focal complaint. DISCHARGE MEDICATIONS: Aspirin 325 mg p.o. daily for 6 weeks, oxycodone 5 mg 1 to 2 every 6 hours p. r.n. pain, and Zofran 4 mg every 8 hours p.r.n. nausea. /[id number]/MODL
== END 2018-04-19 13:41 | disposition home health service (06) | DRG 470 ==
LOC: F3N 08:43 → INTOOBSV 08:43 → F3N 15:39 → OBSVTOIN 04-18 15:46
PROVIDERS: ADMIT Orthopaedic Surgery; ATTEND Orthopaedic Surgery
PROC: 8E0Y0CZ Robotic Assisted Procedure of Lower Extremity, Open Approach (ICD-10-PCS; principal; 2018-04-17 10:30)
PROC: 0SRC0JZ Replacement of Right Knee Joint with Synthetic Substitute, Open Approach (ICD-10-PCS; principal; 2018-04-17 10:30)
DX: M17.11 Unilateral primary osteoarthritis, right knee (principal); E03.9 Hypothyroidism, unspecified; F41.9 Anxiety disorder, unspecified; K58.9 Irritable bowel syndrome, unspecified
CPT/HCPCS: 97110-GP; 97116-GP; 97161-GP; 97165-GO; 97530-GP; 97535-GO; G8978-GP-CK; G8979-GP-CJ; G8980-GP-CI; G8987-GO-CI; G8988-GO-CI; J0171; J0690; J1885; J2250; J2270; J2370; J2405; J2550; J2704; J2795; J3010

== ENCOUNTER → 2018-05-30 | Outpatient (CLI) | payer OTHER | LOC: BMCIMAGING 09:25 | PROVIDERS: ATTEND Physician Assistant | DX: Z09 Encounter for follow-up examination after completed treatment for conditions other than malignant neoplasm (principal); Z96.651 Presence of right artificial knee joint; M25.461 Effusion, right knee ==

== ENCOUNTER → 2018-07-31 | Outpatient (CLI) | payer OTHER | LOC: BMCIMAGING 14:02 | PROVIDERS: ATTEND Orthopaedic Surgery | DX: M25.561 Pain in right knee (principal); Z96.651 Presence of right artificial knee joint ==